=== PATIENT | female | born 1960 | race Two or more races ===

== ENCOUNTER 2022-12-11 13:47 | Inpatient (IN) | payer MEDICAID ==
[~2022-12-11] VITALS: Ht 172.7 cm; Wt 90.9 kg
[~2022-12-11 13:47] MED LIST: FAMO20TA41 PO; HYDR-4353 PO; HYDR115S PO; LORA-835 PO; MULT-38 PO; MYCO500V3 PO; PANT-47 PO
[2022-12-11 14:16] LABS: BASOPHILS % (AUTO) 0.4 % (0-1); EOSINOPHILS # (AUTO) 0.2 X10'3 (0-0.9); EOSINOPHILS % (AUTO) 1.3 % (0-6); HEMATOCRIT 38.7 % (35.0-45.0); HEMOGLOBIN 12.5 g/dl (12.0-16.0); LYMPHOCYTES # (AUTO) 1.1 X10'3 (1.1-4.8); LYMPHOCYTES % (AUTO) 8.7 % (21-51); MEAN CORPUSCULAR HEMOGLOBIN 29.9 PG (27.0-31.0); MEAN CORPUSCULAR HGB CONC 32.3 g/dL (33.0-36.5); MEAN CORPUSCULAR VOLUME 92.8 FL (78-98); MEAN PLATELET VOLUME 8.2 FL (7.4-10.4); MONOCYTES # (AUTO) 0.6 X10'3 (0-0.9); MONOCYTES % (AUTO) 5.1 % (2-12); NEUTROPHILS # (AUTO) 10.2 X10'3 (1.8-7.7); NEUTROPHILS % (AUTO) 84.5 % (42-75); PLATELET COUNT 366 X10'3 (140-440); RED BLOOD COUNT 4.17 X10'6 (4.20-5.60); WHITE BLOOD COUNT 12.1 X10'3 (4.5-11.0)
[2022-12-11 14:29] LABS: APTT 27 SECONDS (22-32)
[2022-12-11 14:31] LABS: ALANINE AMINOTRANSFERASE 25 U/L (12-78); ALBUMIN/GLOBULIN RATIO 0.6 (1.1-1.5); ALKALINE PHOSPHATASE 116 IU/L (46-116); ANION GAP 4 (8-16); ASPARTATE AMINO TRANSFERASE 28 U/L (10-37); BILIRUBIN,TOTAL 0.3 MG/DL (0.1-1.0); BLOOD UREA NITROGEN 11 MG/DL (7-18); BUN/CREATININE RATIO 14.5 (10.0-20.0); CALCIUM 9.4 MG/DL (8.5-10.1); CHLORIDE 98 MMOL/L (99-107); CREATININE 0.76 MG/DL (0.40-0.90); GLUCOSE 120 MG/DL (70-104); POTASSIUM 4.1 MMOL/L (3.5-5.1); SODIUM 138 MMOL/L (135-145); TOTAL CARBON DIOXIDE 35.7 MMOL/L (24-32); TOTAL PROTEIN 8.4 G/DL (6.4-8.2); eGFR 77 ML/MIN
[2022-12-11] MEDS ORDERED: morphine ER 100mg tablet PO STA (15:04)
[2022-12-11] MEDS ORDERED: HYDROcodone/acetaminophen 10/325mg tab PO ONE ×2 (15:05→21:05)
--- NOTE | 2022-12-11 19:47 | NUR ---
SS WAS CONTACTED ON AM SHIFT AND NEVER RESPONDED. PROVIDER MADE AWARE.
[2022-12-11] MEDS ORDERED: HYDROmorphone inj. 0.5 MG/0.5 ML DISP.SYRIN IV PRN (21:00)
[2022-12-11] MEDS ORDERED: bisacodyl 10mg suppository rectal RC PRN (21:00)
[2022-12-11] MEDS ORDERED: ondansetron 4mg rapidly disintigrating tab PO PRN (21:00)
[2022-12-11] MEDS ORDERED: magnesium hydroxide 30ml (MOM) UD suspension PO PRN (21:00)
[2022-12-11] MEDS ORDERED: diphenhydrAMINE 25mg capsule PO PRN (21:00)
[2022-12-11] MEDS ORDERED: mag hydrox/Alum hydrox/simeth 30ml oral suspension PO PRN (21:00)
[2022-12-11] MEDS ORDERED: diphenhydrAMINE 50 mg/ml inj IV PRN (21:00)
[2022-12-11] MEDS ORDERED: acetaminophen 325mg tablet PO PRN ×2 (21:00)
[2022-12-11] MEDS ORDERED: ondansetron/PF 4mg/2ml inj IV PRN (21:00)
[2022-12-11] MEDS ORDERED: temazepam 15mg capsule PO PRN (21:00)
[2022-12-11] MEDS ORDERED: acetaminophen 650mg rectal suppository RC PRN (21:00)
[2022-12-11] MEDS ORDERED: ondansetron 4mg rapidly disintigrating tab PO ONE (21:05)
[2022-12-11] MEDS: dextrose 5%-1/2 normal saline 1,000 ML IV SCH (21:24)
[2022-12-11 21:45] LABS: CREATINE KINASE 29 U/L (26-192); LIPASE 71 U/L (73-393); MAGNESIUM 2.1 MG/DL (1.5-2.4)
[2022-12-11 21:48] LABS: APTT 28 SECONDS (22-32); D-DIMER 0.28 MG/L FEU (0-0.50)
[2022-12-11 23:52] LABS: ABG BASE EXCESS 5.2 mmol/L (-2.0-2.0); ABG HCO3 30.6 mmol/L (22.0-26.0); ABG OXYGEN SATURATION 99.1 % (94-97); ABG PCO2 (T) 47.6 mmHg (32.0-45.0); ABG PO2 (T) 188.5 mmHg (75.0-100.0); ALLEN'S TEST POSITIVE; FCOHb 0.1 % (0.0-3.9); FLOW 6 L/min; FMetHb 0.3 % (0.0-1.5); FO2Hb 98.7 % (94-97); PATIENT TEMPERATURE 36.7; TOTAL HEMOGLOBIN 12.8 G/dl (12.0-16.0)
[2022-12-12] MEDS ORDERED: ONDA4TAB12 PO ×2 (01:16→11:24)
[2022-12-12] MEDS ORDERED: FURO-150 PO ×2 (01:16→11:24)
[2022-12-12] MEDS ORDERED: SENN-263 PO ×2 (01:17→11:24)
[2022-12-12] MEDS ORDERED: PRED10TA23 PO ×2 (01:20→11:24)
[2022-12-12] MEDS ORDERED: OXYC20TA55 PO ×2 (01:20→11:24)
[2022-12-12] MEDS ORDERED: OMEP20CA16 PO ×2 (01:41→11:24)
[2022-12-12] MEDS ORDERED: [UNRECOGNIZED DRUG - CODE] PO ×3 (01:41→11:24)
[2022-12-12] MEDS ORDERED: ondansetron 4mg rapidly disintigrating tab PO PRN (01:50)
[2022-12-12] MEDS ORDERED: morphine ER 30mg tablet PO ONE (04:35)
[2022-12-12] MEDS ORDERED: morphine ER 100mg tablet PO STA (05:06)
--- NOTE | 2022-12-12 06:41 | NUR ---
pt has personal O2 tank, stickered with pt labels and at bedside.
--- NOTE | 2022-12-12 06:46 | NUR ---
Patient denied being allergic to Morphine when I asked her as she was being taking MS Contin. Deleted Morphine from the allergy list
[2022-12-12] MEDS: oxyCODONE IR 5mg (immed. release) tablet PO PRN ×3 (06:56→15:06)
[2022-12-12] MEDS: dextrose 5%-1/2 normal saline 1,000 ML IV SCH (07:04)
[2022-12-12 07:13] LABS: BASOPHILS # (AUTO) 0.1 X10'3 (0-0.2); BASOPHILS % (AUTO) 0.9 % (0-1); EOSINOPHILS # (AUTO) 0.4 X10'3 (0-0.9); EOSINOPHILS % (AUTO) 3.4 % (0-6); HEMATOCRIT 35.4 % (35.0-45.0); HEMOGLOBIN 11.6 g/dl (12.0-16.0); LYMPHOCYTES # (AUTO) 3.2 X10'3 (1.1-4.8); LYMPHOCYTES % (AUTO) 29.6 % (21-51); MEAN CORPUSCULAR HEMOGLOBIN 30.3 PG (27.0-31.0); MEAN CORPUSCULAR HGB CONC 32.6 g/dL (33.0-36.5); MEAN CORPUSCULAR VOLUME 92.8 FL (78-98); MEAN PLATELET VOLUME 8.5 FL (7.4-10.4); MONOCYTES % (AUTO) 8.9 % (2-12); NEUTROPHILS # (AUTO) 6.1 X10'3 (1.8-7.7); NEUTROPHILS % (AUTO) 57.2 % (42-75); PLATELET COUNT 317 X10'3 (140-440); RED BLOOD COUNT 3.82 X10'6 (4.20-5.60); RED CELL DISTRIBUTION WIDTH 14.1 % (11.5-14.5); WHITE BLOOD COUNT 10.7 X10'3 (4.5-11.0)
[2022-12-12] MEDS ORDERED: pantoprazole 40mg Tablet.DR PO SCH (07:30)
[2022-12-12 07:31] LABS: ALANINE AMINOTRANSFERASE 21 U/L (12-78); ALBUMIN 2.5 G/DL (3.4-5.0); ALBUMIN/GLOBULIN RATIO 0.5 (1.1-1.5); ALKALINE PHOSPHATASE 102 IU/L (46-116); ANION GAP 4 (8-16); ASPARTATE AMINO TRANSFERASE 25 U/L (10-37); BILIRUBIN,TOTAL 0.3 MG/DL (0.1-1.0); BLOOD UREA NITROGEN 9 MG/DL (7-18); BUN/CREATININE RATIO 11.5 (10.0-20.0); CALCIUM 8.7 MG/DL (8.5-10.1); CHLORIDE 98 MMOL/L (99-107); CHOL/HDL RATIO 2.8 (0.00-4.99); CHOLESTEROL 213 MG/DL (0-200); CREATININE 0.78 MG/DL (0.40-0.90); GLUCOSE 97 MG/DL (70-104); HDL CHOLESTEROL 75 MG/DL (35-60); LDL CHOLESTEROL 116 MG/DL (50-100); POTASSIUM 3.9 MMOL/L (3.5-5.1); SODIUM 136 MMOL/L (135-145); TOTAL CARBON DIOXIDE 33.7 MMOL/L (24-32); TOTAL PROTEIN 7.2 G/DL (6.4-8.2); TRIGLYCERIDES 65 MG/DL (20-135); eGFR 75 ML/MIN
[2022-12-12 07:41] LABS: CLARITY,URINE CLEAR (Clear); COLOR,URINE STRAW (Yellow); GLUCOSE, URINE NEGATIVE (Neg); KETONES,URINE NEGATIVE (Neg); LEUKOCYTE ESTERASE ,URINE NEGATIVE (Neg); NITRITES, URINE NEGATIVE (Neg); OCCULT BLOOD,URINE NEGATIVE (Neg); PH,URINE 6.5 (4.8-8.0); PROTEIN,URINE NEGATIVE (Neg); UROBILINOGEN,URINE 0.2 E.U/dL (0.2-1.0)
[2022-12-12 07:53] LABS: UA COLLECTION TYPE CLN CATCH MIDSTREAM
--- NOTE | 2022-12-12 07:57 | NUR ---
Paged Dr. Roblero PAGER ID: [phone] MESSAGE: WARREN Haines RN RE: Vale Lopez. Patient wish to be DNR, she is full code on the record.
[2022-12-12] MEDS ORDERED: heparin, porcine 5000 units/ml vial SQ SCH (08:00)
[2022-12-12] MEDS ORDERED: docusate sod 100mg capsule PO SCH (08:00)
[2022-12-12] MEDS ORDERED: methylPREDNISolone sod succ 125mg/2ml vial IV SCH (08:00)
[2022-12-12] MEDS ORDERED: CefTRIAXone/D5W-Rocephin 1gm 50 ML IV SCH (08:00)
[2022-12-12] MEDS ORDERED: morphine ER 100mg tablet PO SCH (08:00)
[2022-12-12] MEDS ORDERED: azithromycin/NS 500mg/250ml 250 ML IV SCH (08:00)
[2022-12-12] MEDS ORDERED: prednisone 10mg tablet PO SCH (08:00)
--- NOTE | 2022-12-12 08:24 | NUR ---
Per Dr. Roblero, I can still give the Solumedrol and hold the Prednisone for now Addendum: 12/12/22 at 0890 by MADHU Please disregard the above note, it was charted under the above user
--- NOTE | 2022-12-12 08:25 | NUR ---
Per Dr. Roblero, I can still give the Solumedrol and hold the Prednisone for now
[2022-12-12 08:45] VITALS: BP 130/75
--- NOTE | 2022-12-12 10:02 | NUR ---
[employer] IN[employer] STATES CASE MANAGEMENT TO SEE PT
[2022-12-12] MEDS ORDERED: AMOX-117 PO (11:24)
--- NOTE | 2022-12-12 11:51 | NUR ---
Spoke to the hospice case manager Anum. She said patient can go home and hospice to open the case on Sunday. Anum said she will need to contact Annika Loyd first about having patient has new prescriptions of all her home meds as she does not have any available
--- NOTE | 2022-12-12 12:51 | NUR ---
Paged Dr. Roblero PAGER ID: [phone] MESSAGE: WARREN Haines RN RE: Vale Lopez, Pt needs all her home meds refill as she does not have any. We only got Augmentin as discharge medication. Can we please address this so I can discharge her? She does not have PCP
[2022-12-12] MEDS ORDERED: MORP20SO PO ×2 (13:33)
[2022-12-12] MEDS ORDERED: sennosides 8.6mg tablet PO SCH (21:00)
== END 2022-12-12 15:14 | disposition hospice, home (50) | DRG 142 ==
LOC: ER 13:47 → ED HOLD 21:07
PROVIDERS: ADMIT Family Medicine; ATTEND Family Medicine
DX: J84.112 Idiopathic pulmonary fibrosis (principal); J96.21 Acute and chronic respiratory failure with hypoxia; D84.9 Immunodeficiency, unspecified; J44.1 Chronic obstructive pulmonary disease with (acute) exacerbation; E88.09 Other disorders of plasma-protein metabolism, not elsewhere classified; I11.0 Hypertensive heart disease with heart failure; I50.32 Chronic diastolic (congestive) heart failure; Z51.5 Encounter for palliative care; E11.9 Type 2 diabetes mellitus without complications; K21.9 Gastro-esophageal reflux disease without esophagitis; G89.4 Chronic pain syndrome; I25.2 Old myocardial infarction; M06.9 Rheumatoid arthritis, unspecified; Z79.52 Long term (current) use of systemic steroids; Z87.891 Personal history of nicotine dependence; Z90.5 Acquired absence of kidney; Z88.8 Allergy status to other drugs, medicaments and biological substances
CPT/HCPCS: 36415; 36600; 71045; 80053; 80061; 81003; 82550; 82803; 83036; 83605; 83690; 83735; 83880; 84100; 84443; 84484; 85018; 85025; 85379; 85610; 85730; 87040; 93005; 93306; 99285; G0378; J0456; J0696; J1170; J1644; J2930

== ENCOUNTER 2023-12-06 11:08 | Inpatient (IN) | payer MEDICAID ==
[~2023-12-06] VITALS: Ht 172.7 cm; Wt 106.0 kg
[2023-12-06] VITALS (8 sets, daily range): BP systolic 153; BP diastolic 96; PULSE 118–140; RESP 18–39; TEMP 97.4; O2SAT 93–98
[~2023-12-06 11:08] MED LIST changes: -FAMO20TA41 PO; +FURO-150 PO; -HYDR-4353 PO; -HYDR115S PO; -LORA-835 PO; -MULT-38 PO; -MYCO500V3 PO; +OMEP20CA16 PO; +ONDA-243 PO; +OXYC20TA55 PO; -PANT-47 PO; +PRED10TA23 PO; +SENN-263 PO
[2023-12-06] MEDS: normal saline 1000ML IV soln IVB ONE (11:56)
[2023-12-06] MEDS ORDERED: hydrocortisone sod succ/PF 250mg/2ml inj. IV ONE (12:00)
[2023-12-06 12:08] LABS: BASOPHILS % (AUTO) 0.1 % (0-1); EOSINOPHILS % (AUTO) 0.2 % (0-6); HEMATOCRIT 37.7 % (35.0-45.0); HEMOGLOBIN 12.3 g/dl (12.0-16.0); LYMPHOCYTES # (AUTO) 0.6 X10'3 (1.1-4.8); MEAN CORPUSCULAR HEMOGLOBIN 30.1 PG (27.0-31.0); MEAN CORPUSCULAR HGB CONC 32.7 g/dL (33.0-36.5); MEAN CORPUSCULAR VOLUME 91.9 FL (78-98); MEAN PLATELET VOLUME 9.1 FL (7.4-10.4); MONOCYTES # (AUTO) 0.9 X10'3 (0-0.9); MONOCYTES % (AUTO) 5.8 % (2-12); NEUTROPHILS # (AUTO) 14.6 X10'3 (1.8-7.7); NEUTROPHILS % (AUTO) 89.9 % (42-75); PLATELET COUNT 361 X10'3 (140-440); RED CELL DISTRIBUTION WIDTH 14.2 % (11.5-14.5); WHITE BLOOD COUNT 16.2 X10'3 (4.5-11.0)
[2023-12-06] MEDS: ipratropium/albuterol 3ml nebule NEB ONE (12:14)
[2023-12-06] MEDS: albuterol 2.5 MG/3 ML nebule NEB ONE (12:14)
[2023-12-06 12:25] LABS: ALBUMIN 2.4 G/DL (3.4-5.0); ANION GAP 3 (8-16); BLOOD UREA NITROGEN 9 MG/DL (7-18); BUN/CREATININE RATIO 12.2 (10.0-20.0); CALCIUM 9.4 MG/DL (8.5-10.1); CHLORIDE 85 MMOL/L (99-107); CREATININE 0.74 MG/DL (0.40-0.90); GLUCOSE 170 MG/DL (70-104); PRO BRAIN NATRIURETIC PEPTIDE 995 PG/ML (0-125); SODIUM 125 MMOL/L (135-145); TOTAL CARBON DIOXIDE 36.7 MMOL/L (24-32); eCRCL 77 ML/MIN; eGFR 79 ML/MIN
[2023-12-06 12:26] LABS: POTASSIUM 4.9 MMOL/L (3.5-5.1)
[2023-12-06] MEDS: hydrocortisone sod succ/PF 100mg/2ml inj. IV ONE (12:42)
[2023-12-06 13:19] LABS: ABG BASE EXCESS 4.7 mmol/L (-2.0-2.0); ABG HCO3 32.3 mmol/L (22.0-26.0); ABG OXYGEN SATURATION 93.2 % (94-97); ABG PCO2 (T) 61.3 mmHg (32.0-45.0); ABG PH (T) 7.338 (7.350-7.450); ALLEN'S TEST POSITIVE; FCOHb 0.1 % (0.0-3.9); FHHb 6.8 % (0.0-5.0); FLOW 6 L/min; FMetHb 0.3 % (0.0-1.5); FO2Hb 92.8 % (94-97); MODE NASAL CANNULA; PATIENT TEMPERATURE 36.6; TOTAL HEMOGLOBIN 12.8 G/dl (12.0-16.0)
[2023-12-06] MEDS: ondansetron/PF 4mg/2ml inj IV ONE (13:36)
[2023-12-06] MEDS: oxyCODONE IR 5mg (immed. release) tablet PO ONE (13:37)
[2023-12-06] MEDS: LORazepam 2 mg/ml vial IV ONE (14:37)
[2023-12-06 14:54] LABS: ABG BASE EXCESS 2.2 mmol/L (-2.0-2.0); ABG HCO3 30.2 mmol/L (22.0-26.0); ABG OXYGEN SATURATION 89.9 % (94-97); ABG PCO2 (T) 62.2 mmHg (32.0-45.0); ABG PH (T) 7.303 (7.350-7.450); ABG PO2 (T) 63.5 mmHg (75.0-100.0); ALLEN'S TEST POSITIVE; FCOHb 0.3 % (0.0-3.9); FMetHb 0.3 % (0.0-1.5); FO2Hb 89.4 % (94-97); MODE MASK - BIPAP; PATIENT TEMPERATURE 36.6; RESPIRATORY RATE 14 b/min; TOTAL HEMOGLOBIN 13.2 G/dl (12.0-16.0)
[2023-12-06] MEDS: piperacillin/tazo 3.375gm/50ml 50 ML IV ONE (15:05)
[2023-12-06] MEDS ORDERED: POTA10CA95 PO ×2 (17:07→17:41)
[2023-12-06] MEDS ORDERED: PRED20TA PO (17:07)
[2023-12-06] MEDS ORDERED: SULF1TAB45 PO (17:07)
[2023-12-06] MEDS ORDERED: MORP60TA32 PO (17:07)
[2023-12-06] MEDS ORDERED: FURO20TA4 PO (17:07)
[2023-12-06] MEDS ORDERED: LEVA0.6333 NEB (17:07)
[2023-12-06] MEDS ORDERED: NYST15PO4 TOP (17:07)
[2023-12-06] MEDS ORDERED: MORP100S7 PO (17:07)
[2023-12-06] MEDS ORDERED: OXYC20TA40 PO (17:07)
[2023-12-06] MEDS ORDERED: SULF1TAB49 PO (17:27)
[2023-12-06] MEDS ORDERED: LORA-269 PO (17:27)
[2023-12-06] MEDS ORDERED: METH5TAB4 PO (17:27)
[2023-12-06] MEDS ORDERED: PER5325T PO (17:27)
[2023-12-06] MEDS ORDERED: FURO40TA4 PO (17:33)
[2023-12-06] MEDS ORDERED: FENT1PAT10 TOP (17:35)
[2023-12-06] MEDS ORDERED: FENT1PAT13 TOP (17:40)
[2023-12-06] MEDS ORDERED: OMEP40CA21 PO (17:46)
[2023-12-06] MEDS ORDERED: ondansetron/PF 4mg/2ml inj IV PRN (20:45)
[2023-12-06] MEDS ORDERED: magnesium hydroxide 30ml (MOM) UD suspension PO PRN (20:45)
[2023-12-06] MEDS ORDERED: potassium Cl 40MEQ/1/2NS 520ml 520 ML IV PRN (20:45)
[2023-12-06] MEDS ORDERED: potassium Cl 20 mEq SR tablet PO PRN ×2 (20:45)
[2023-12-06] MEDS ORDERED: magnesium sulf-water 2g/50mL 50 ML IV PRN (20:45)
[2023-12-06] MEDS ORDERED: magnesium sulf-water 4G/100mL 100 ML IV PRN (20:45)
[2023-12-06] MEDS ORDERED: magnesium Cl slow-release 64mg tablet PO PRN (20:45)
[2023-12-07] VITALS (16 sets, daily range): BP systolic 135–169; BP diastolic 67–93; PULSE 116–147; RESP 13–50; TEMP 96.9–98.3; O2SAT 91–98
[2023-12-07] MEDS: non-formulary drug (Fentanyl Patch 100 MCG* (Duragesic 100 MCG*) 1 PATCH) TOP SCH (00:40)
[2023-12-07] MEDS: FENTANYL 50 MCG TOP SCH (00:40)
[2023-12-07] MEDS ORDERED: oxybutynin 5mg tablet PO PRN (01:05)
[2023-12-07] MEDS: hydrALAZINE 20mg/ml inj. IV SCH (02:17)
[2023-12-07] MEDS ORDERED: oxyCODONE IR 5mg (immed. release) tablet PO PRN (02:20)
[2023-12-07] MEDS: acetaminophen 325mg tablet PO PRN (02:27)
[2023-12-07] MEDS: LORazepam 1 MG tablet PO SCH (03:34)
[2023-12-07] MEDS: methylPREDNISolone sod succ 125mg/2ml vial IV ONE ×2 (04:01→22:19)
[2023-12-07] MEDS: metoprolol tartrate 12.5mg (1/2 tablet) PO ONE (04:01)
[2023-12-07 05:56] LABS: ALBUMIN 2.1 G/DL (3.4-5.0); ANION GAP 5 (8-16); BLOOD UREA NITROGEN 7 MG/DL (7-18); BUN/CREATININE RATIO 13.7 (10.0-20.0); CALCIUM 9.7 MG/DL (8.5-10.1); CHLORIDE 92 MMOL/L (99-107); CREATININE 0.51 MG/DL (0.40-0.90); GLUCOSE 112 MG/DL (70-104); MAGNESIUM 2.2 MG/DL (1.5-2.4); SODIUM 134 MMOL/L (135-145); TOTAL CARBON DIOXIDE 37.3 MMOL/L (24-32); eCRCL 112 ML/MIN; eGFR > 90 ML/MIN
[2023-12-07 05:57] LABS: BASOPHILS # (AUTO) 0.1 X10'3 (0-0.2); BASOPHILS % (AUTO) 0.4 % (0-1); EOSINOPHILS % (AUTO) 0.1 % (0-6); HEMATOCRIT 36.7 % (35.0-45.0); HEMOGLOBIN 11.5 g/dl (12.0-16.0); LYMPHOCYTES # (AUTO) 0.6 X10'3 (1.1-4.8); LYMPHOCYTES % (AUTO) 4.1 % (21-51); MEAN CORPUSCULAR HEMOGLOBIN 29.1 PG (27.0-31.0); MEAN CORPUSCULAR HGB CONC 31.5 g/dL (33.0-36.5); MEAN CORPUSCULAR VOLUME 92.5 FL (78-98); MEAN PLATELET VOLUME 9.1 FL (7.4-10.4); MONOCYTES # (AUTO) 0.8 X10'3 (0-0.9); MONOCYTES % (AUTO) 5.1 % (2-12); NEUTROPHILS # (AUTO) 13.6 X10'3 (1.8-7.7); NEUTROPHILS % (AUTO) 90.3 % (42-75); PLATELET COUNT 343 X10'3 (140-440); POTASSIUM 4.7 MMOL/L (3.5-5.1); RED BLOOD COUNT 3.97 X10'6 (4.20-5.60); RED CELL DISTRIBUTION WIDTH 14.1 % (11.5-14.5); WHITE BLOOD COUNT 15.1 X10'3 (4.5-11.0)
[2023-12-07] MEDS: methylphenidate 5mg tablet PO SCH (08:00)
[2023-12-07] MEDS: K and/or MAG REPLACEMENT MC SCH (08:00)
[2023-12-07] MEDS ORDERED: methylPREDNISolone sod succ/PF 40mg inj. IV SCH (08:00)
[2023-12-07] MEDS: methylPREDNISolone sod succ/PF 40mg inj. IV SCH (08:11)
[2023-12-07] MEDS: levoFLOXACIN-Levaquin 500mg/D5 100 ML IV SCH (08:12)
[2023-12-07] MEDS: pantoprazole 40mg Tablet.DR PO SCH (08:16)
[2023-12-07 12:07] LABS: ABG BASE EXCESS 12.6 mmol/L (-2.0-2.0); ABG OXYGEN SATURATION 98.4 % (94-97); ABG PCO2 (T) 57.8 mmHg (32.0-45.0); ABG PH (T) 7.447 (7.350-7.450); ABG PO2 (T) 107.8 mmHg (75.0-100.0); ALLEN'S TEST POSITIVE; FCOHb 0.5 % (0.0-3.9); FHHb 1.6 % (0.0-5.0); FMetHb 0.3 % (0.0-1.5); FO2Hb 97.6 % (94-97); MODE MASK - BIPAP; RESPIRATORY RATE 18 b/min; TIDAL VOLUME 504 mL; TOTAL HEMOGLOBIN 13.1 G/dl (12.0-16.0)
[2023-12-07] MEDS: lactose-reduced food (Ensure Enlive) - 237ml bottle PO SCH (18:00)
[2023-12-07] MEDS: enoxaparin 40mg/0.4ml syringe SQ SCH (20:35)
[2023-12-07] MEDS: metoprolol succinate 25mg (24-HOUR) SR. Tablet PO ONE (22:19)
[2023-12-08] VITALS (23 sets, daily range): BP systolic 125–151; BP diastolic 67–97; PULSE 100–149; RESP 17–51; TEMP 97.4–97.9; O2SAT 92–98
[2023-12-08 06:48] LABS: BASOPHILS # (AUTO) 0.1 X10'3 (0-0.2); BASOPHILS % (AUTO) 0.4 % (0-1); EOSINOPHILS % (AUTO) 0 % (0-6); HEMATOCRIT 39.4 % (35.0-45.0); HEMOGLOBIN 12.7 g/dl (12.0-16.0); LYMPHOCYTES # (AUTO) 0.4 X10'3 (1.1-4.8); LYMPHOCYTES % (AUTO) 2.3 % (21-51); MEAN CORPUSCULAR HEMOGLOBIN 29.9 PG (27.0-31.0); MEAN CORPUSCULAR HGB CONC 32.3 g/dL (33.0-36.5); MEAN CORPUSCULAR VOLUME 92.5 FL (78-98); MEAN PLATELET VOLUME 8.5 FL (7.4-10.4); MONOCYTES # (AUTO) 0.4 X10'3 (0-0.9); MONOCYTES % (AUTO) 2.4 % (2-12); NEUTROPHILS % (AUTO) 94.9 % (42-75); PLATELET COUNT 400 X10'3 (140-440); RED BLOOD COUNT 4.26 X10'6 (4.20-5.60); RED CELL DISTRIBUTION WIDTH 14.3 % (11.5-14.5); WHITE BLOOD COUNT 18.9 X10'3 (4.5-11.0)
[2023-12-08 07:10] LABS: ALBUMIN 2.2 G/DL (3.4-5.0); ANION GAP 5 (8-16); BLOOD UREA NITROGEN 14 MG/DL (7-18); BUN/CREATININE RATIO 23.7 (10.0-20.0); CALCIUM 9.8 MG/DL (8.5-10.1); CHLORIDE 91 MMOL/L (99-107); CREATININE 0.59 MG/DL (0.40-0.90); GLUCOSE 179 MG/DL (70-104); MAGNESIUM 2.3 MG/DL (1.5-2.4); POTASSIUM 4.8 MMOL/L (3.5-5.1); SODIUM 135 MMOL/L (135-145); TOTAL CARBON DIOXIDE 38.9 MMOL/L (24-32); eCRCL 97 ML/MIN; eGFR > 90 ML/MIN
[2023-12-08] MEDS: morphine 2 MG/ML inj. syringe IV PRN (10:06)
[2023-12-08] MEDS: levalbuterol 1.25mg/0.5ml nebule IH PRN (10:38)
[2023-12-08] MEDS ORDERED: levalbuterol 1.25mg/0.5ml nebule IH SCH (11:00)
[2023-12-08] MEDS: oxyCODONE IR 5mg (immed. release) tablet PO ONE (13:15)
[2023-12-08] MEDS: oxyCODONE IR 5mg (immed. release) tablet PO PRN (17:11)
[2023-12-08] MEDS: methylPREDNISolone sod succ/PF 40mg inj. IV SCH (17:12)
[2023-12-08] MEDS: furosemide 20 MG/2 ML vial IV ONE (20:14)
[2023-12-08] MEDS ORDERED: iohexol 350MG/ML 100ml bottle IV ONE (20:40)
[2023-12-09] VITALS (17 sets, daily range): BP systolic 132–160; BP diastolic 54–92; PULSE 130–141; RESP 22–46; TEMP 96.9–98.4; O2SAT 90–99
[2023-12-09] MEDS: metoprolol tartrate 25mg tablet PO ONE (01:36)
[2023-12-09 07:12] LABS: BASOPHILS % (AUTO) 0.1 % (0-1); EOSINOPHILS % (AUTO) 0 % (0-6); HEMATOCRIT 38.2 % (35.0-45.0); HEMOGLOBIN 12.1 g/dl (12.0-16.0); LYMPHOCYTES # (AUTO) 0.3 X10'3 (1.1-4.8); LYMPHOCYTES % (AUTO) 1.7 % (21-51); MEAN CORPUSCULAR HEMOGLOBIN 29.3 PG (27.0-31.0); MEAN CORPUSCULAR HGB CONC 31.7 g/dL (33.0-36.5); MEAN CORPUSCULAR VOLUME 92.2 FL (78-98); MEAN PLATELET VOLUME 8.4 FL (7.4-10.4); MONOCYTES # (AUTO) 0.9 X10'3 (0-0.9); MONOCYTES % (AUTO) 4.9 % (2-12); NEUTROPHILS # (AUTO) 16.6 X10'3 (1.8-7.7); NEUTROPHILS % (AUTO) 93.3 % (42-75); PLATELET COUNT 399 X10'3 (140-440); RED BLOOD COUNT 4.14 X10'6 (4.20-5.60); RED CELL DISTRIBUTION WIDTH 14.5 % (11.5-14.5); WHITE BLOOD COUNT 17.8 X10'3 (4.5-11.0)
[2023-12-09 07:41] LABS: ALBUMIN 2.2 G/DL (3.4-5.0); ANION GAP 3 (8-16); BLOOD UREA NITROGEN 19 MG/DL (7-18); BUN/CREATININE RATIO 32.8 (10.0-20.0); CALCIUM 9.5 MG/DL (8.5-10.1); CHLORIDE 91 MMOL/L (99-107); CREATININE 0.58 MG/DL (0.40-0.90); GLUCOSE 168 MG/DL (70-104); MAGNESIUM 2.3 MG/DL (1.5-2.4); POTASSIUM 4.8 MMOL/L (3.5-5.1); PRO BRAIN NATRIURETIC PEPTIDE 983 PG/ML (0-125); SODIUM 134 MMOL/L (135-145); TOTAL CARBON DIOXIDE 39.9 MMOL/L (24-32); eCRCL 99 ML/MIN; eGFR > 90 ML/MIN
[2023-12-09] MEDS: furosemide 40mg/4ml inj IV SCH (09:05)
[2023-12-09] MEDS: HYDROmorphone 1 mg/ml syringe IV PRN (20:58)
[2023-12-10] VITALS (19 sets, daily range): BP systolic 114–143; BP diastolic 49–86; PULSE 117–143; RESP 10–49; TEMP 96.5–98; O2SAT 94–98
[2023-12-10 07:40] LABS: BASOPHILS % (AUTO) 0.1 % (0-1); EOSINOPHILS % (AUTO) 0 % (0-6); HEMATOCRIT 39.2 % (35.0-45.0); HEMOGLOBIN 12.5 g/dl (12.0-16.0); LYMPHOCYTES # (AUTO) 0.3 X10'3 (1.1-4.8); LYMPHOCYTES % (AUTO) 2.1 % (21-51); MEAN CORPUSCULAR HEMOGLOBIN 29.3 PG (27.0-31.0); MEAN CORPUSCULAR HGB CONC 31.8 g/dL (33.0-36.5); MEAN CORPUSCULAR VOLUME 92.3 FL (78-98); MEAN PLATELET VOLUME 8.5 FL (7.4-10.4); MONOCYTES % (AUTO) 6.7 % (2-12); NEUTROPHILS # (AUTO) 13.9 X10'3 (1.8-7.7); NEUTROPHILS % (AUTO) 91.1 % (42-75); PLATELET COUNT 384 X10'3 (140-440); RED BLOOD COUNT 4.25 X10'6 (4.20-5.60); RED CELL DISTRIBUTION WIDTH 14.3 % (11.5-14.5); WHITE BLOOD COUNT 15.3 X10'3 (4.5-11.0)
[2023-12-10 10:32] LABS: BASOPHILS % (AUTO) 0.3 % (0-1); EOSINOPHILS % (AUTO) 0.1 % (0-6); HEMATOCRIT 38.8 % (35.0-45.0); HEMOGLOBIN 12.5 g/dl (12.0-16.0); LYMPHOCYTES # (AUTO) 0.3 X10'3 (1.1-4.8); MEAN CORPUSCULAR HEMOGLOBIN 29.4 PG (27.0-31.0); MEAN CORPUSCULAR HGB CONC 32.1 g/dL (33.0-36.5); MEAN CORPUSCULAR VOLUME 91.6 FL (78-98); MEAN PLATELET VOLUME 8.3 FL (7.4-10.4); MONOCYTES % (AUTO) 6.8 % (2-12); NEUTROPHILS % (AUTO) 90.8 % (42-75); PLATELET COUNT 381 X10'3 (140-440); RED BLOOD COUNT 4.24 X10'6 (4.20-5.60); RED CELL DISTRIBUTION WIDTH 14.2 % (11.5-14.5); WHITE BLOOD COUNT 14.3 X10'3 (4.5-11.0)
[2023-12-10 10:40] LABS: ALANINE AMINOTRANSFERASE 46 U/L (12-78); ALBUMIN 2.3 G/DL (3.4-5.0); ALBUMIN/GLOBULIN RATIO 0.4 (1.1-1.5); ALKALINE PHOSPHATASE 239 IU/L (46-116); ANION GAP -2 (8-16); ASPARTATE AMINO TRANSFERASE 35 U/L (10-37); BILIRUBIN,TOTAL 0.4 MG/DL (0.1-1.0); BLOOD UREA NITROGEN 21 MG/DL (7-18); BUN/CREATININE RATIO 29.2 (10.0-20.0); CALCIUM 9.3 MG/DL (8.5-10.1); CHLORIDE 87 MMOL/L (99-107); CREATININE 0.72 MG/DL (0.40-0.90); GLUCOSE 195 MG/DL (70-104); MAGNESIUM 2.2 MG/DL (1.5-2.4); POTASSIUM 4.5 MMOL/L (3.5-5.1); SODIUM 129 MMOL/L (135-145); TOTAL PROTEIN 7.7 G/DL (6.4-8.2); eCRCL 80 ML/MIN; eGFR 82 ML/MIN
[2023-12-10 10:43] LABS: TOTAL CARBON DIOXIDE 44.4 MMOL/L (24-32)
[2023-12-10] MEDS ORDERED: albuterol 2.5 MG/3 ML nebule NEB PRN (21:30)
[2023-12-10] MEDS: metoprolol tartrate 1mg/ml inj IV PRN (22:29)
[2023-12-10] MEDS: normal saline 500ml IV soln 500 ML IV ONE (22:29)
[2023-12-11] VITALS (18 sets, daily range): BP systolic 129–156; BP diastolic 74–93; PULSE 113–137; RESP 16–42; TEMP 97.6–98.9; O2SAT 94–99
[2023-12-11 06:55] LABS: BASOPHILS % (AUTO) 0.1 % (0-1); EOSINOPHILS % (AUTO) 0 % (0-6); HEMATOCRIT 38.1 % (35.0-45.0); HEMOGLOBIN 12.2 g/dl (12.0-16.0); LYMPHOCYTES # (AUTO) 0.3 X10'3 (1.1-4.8); LYMPHOCYTES % (AUTO) 2.8 % (21-51); MEAN CORPUSCULAR HEMOGLOBIN 29.3 PG (27.0-31.0); MEAN CORPUSCULAR HGB CONC 31.9 g/dL (33.0-36.5); MEAN CORPUSCULAR VOLUME 91.7 FL (78-98); MEAN PLATELET VOLUME 8.3 FL (7.4-10.4); MONOCYTES # (AUTO) 0.7 X10'3 (0-0.9); MONOCYTES % (AUTO) 6.2 % (2-12); NEUTROPHILS # (AUTO) 10.5 X10'3 (1.8-7.7); NEUTROPHILS % (AUTO) 90.9 % (42-75); PLATELET COUNT 330 X10'3 (140-440); RED BLOOD COUNT 4.15 X10'6 (4.20-5.60); RED CELL DISTRIBUTION WIDTH 14.2 % (11.5-14.5); WHITE BLOOD COUNT 11.5 X10'3 (4.5-11.0)
[2023-12-11 07:08] LABS: ALBUMIN 2.3 G/DL (3.4-5.0); ANION GAP -2 (8-16); BLOOD UREA NITROGEN 21 MG/DL (7-18); BUN/CREATININE RATIO 36.2 (10.0-20.0); CALCIUM 9.2 MG/DL (8.5-10.1); CHLORIDE 90 MMOL/L (99-107); CREATININE 0.58 MG/DL (0.40-0.90); GLUCOSE 165 MG/DL (70-104); MAGNESIUM 2.5 MG/DL (1.5-2.4); POTASSIUM 4.7 MMOL/L (3.5-5.1); SODIUM 130 MMOL/L (135-145); eCRCL 99 ML/MIN; eGFR > 90 ML/MIN
[2023-12-11 07:22] LABS: TOTAL CARBON DIOXIDE 42.4 MMOL/L (24-32)
[2023-12-11 08:54] LABS: HBSAG SCREEN Negative (Negative); HEP B CORE AB, IGM Negative (Negative); HEP B CORE AB, TOT Negative (Negative)
[2023-12-11] MEDS: LORazepam 2 mg/ml vial IV ONE (21:42)
[2023-12-12] VITALS (11 sets, daily range): BP systolic 135–166; BP diastolic 87–100; PULSE 120–140; RESP 20–42; TEMP 97.4–98.2; O2SAT 94–99
[2023-12-12] MEDS: LORazepam 2 mg/ml vial IV ONE (04:58)
[2023-12-12] MEDS ORDERED: morphine 10mg/ml inj. IV PRN (12:30)
[2023-12-12] MEDS: LORazepam 2 mg/ml vial IV PRN ×2 (13:24→14:37)
[2023-12-12] MEDS: morphine 2 MG/ML inj. syringe IV PRN ×2 (13:25→14:38)
[2023-12-12] MEDS: morphine 10mg/0.5ml (conc. morphine) oral syringe PO PRN ×2 (14:08→16:35)
[2023-12-13] MEDS: HYDROmorphone 1 mg/ml syringe IV PRN (02:32)
[2023-12-13 08:00] VITALS: RESP 41
[2023-12-13 20:55] VITALS: RESP 41
[2023-12-14] MEDS: morphine 4 MG/ML inj SYRINge IV PRN (04:10)
[2023-12-14 12:27] VITALS: RESP 22
== END 2023-12-14 12:50 | disposition hospice, home (50) | DRG 133 ==
LOC: ER 11:09 → ED HOLD 20:48 → PCU 3S 23:00
PROVIDERS: ADMIT Internal Medicine; ATTEND Internal Medicine
PROC: B32T1ZZ Computerized Tomography (CT Scan) of Left Pulmonary Artery using Low Osmolar Contrast (ICD-10-PCS; principal; 2023-12-08)
PROC: B3201ZZ Computerized Tomography (CT Scan) of Thoracic Aorta using Low Osmolar Contrast (ICD-10-PCS; 2023-12-08)
PROC: B32S1ZZ Computerized Tomography (CT Scan) of Right Pulmonary Artery using Low Osmolar Contrast (ICD-10-PCS; 2023-12-08)
PROC: 5A09357 Assistance with Respiratory Ventilation, Less than 24 Consecutive Hours, Continuous Positive Airway Pressure (ICD-10-PCS; 2023-12-08)
PROC: 5A09357 Assistance with Respiratory Ventilation, Less than 24 Consecutive Hours, Continuous Positive Airway Pressure (ICD-10-PCS; 2023-12-09)
PROC: 5A09357 Assistance with Respiratory Ventilation, Less than 24 Consecutive Hours, Continuous Positive Airway Pressure (ICD-10-PCS; 2023-12-10)
PROC: 5A0935A Assistance with Respiratory Ventilation, Less than 24 Consecutive Hours, High Flow/Velocity Cannula (ICD-10-PCS; 2023-12-10)
PROC: 5A09357 Assistance with Respiratory Ventilation, Less than 24 Consecutive Hours, Continuous Positive Airway Pressure (ICD-10-PCS; 2023-12-11)
PROC: 5A0935A Assistance with Respiratory Ventilation, Less than 24 Consecutive Hours, High Flow/Velocity Cannula (ICD-10-PCS; 2023-12-11)
PROC: 5A09357 Assistance with Respiratory Ventilation, Less than 24 Consecutive Hours, Continuous Positive Airway Pressure (ICD-10-PCS; 2023-12-12)
DX: J96.01 Acute respiratory failure with hypoxia (principal); J84.112 Idiopathic pulmonary fibrosis; I10 Essential (primary) hypertension; G89.29 Other chronic pain; K21.9 Gastro-esophageal reflux disease without esophagitis; J96.02 Acute respiratory failure with hypercapnia; Z20.822 Contact with and (suspected) exposure to COVID-19; M54.9 Dorsalgia, unspecified; E11.9 Type 2 diabetes mellitus without complications; Z66 Do not resuscitate; Z79.899 Other long term (current) drug therapy; Z88.8 Allergy status to other drugs, medicaments and biological substances; I25.2 Old myocardial infarction; Z90.5 Acquired absence of kidney; Z51.5 Encounter for palliative care
CPT/HCPCS: 36415; 36600; 71045; 71275; 80048; 80053; 82803; 83605; 83735; 83880; 84145; 84484; 85018; 85025; 86704; 86705; 87040; 87081; 87340; 87502; 87503; 87811; 93005; 94640; 94660; 94760; 94799; 96365; 96375; 99285; A4314; A4338; A4615; A5200; A6213; A6449; C1758; G0378; J0360; J1170; J1650; J1720; J1940; J1956; J2060; J2270; J2405; J2543; J2919; J3490; J7030; J7040; J7614; Q9967